=== PATIENT | male | born 1955 | race Caucasian/White ===

== ENCOUNTER → 2016-11-04 | Outpatient (CLI) | payer MEDICARE, OTHER ==
[2016-08-10 17:36] VITALS: BP 120/71
[~2016-11-04] MED LIST: CEPH-264 PO; HYDR-971 PO; LISI-338 PO
--- NOTE | 2016-11-04 13:47 | CARD ---
APPROVED REPORT EXAM: Two-dimensional and M-mode echocardiogram with Doppler and color Doppler. Other Information Quality : Average Rhythm : NSR INDICATION Murmur 2D DIMENSIONS RVDd3.5 (2.9-3.5cm)Left Atrium(2D)4.1 (1.6-4.0cm) IVSd1.0 (0.7-1.1cm)Aortic Root(2D)3.1 (2.0-3.7cm) LVDd5.3 (3.9-5.9cm)LVOT Diameter2.0 (1.8-2.4cm) PWd1.0 (0.7-1.1cm)LVDs2.9 (2.5-4.0cm) FS (%) 45.8 %SV105.9 ml Aortic Valve AoV Peak Qamar.132.0cm/sAoV VTI28.6cm AO Peak GR.7.0mmHgLVOT Peak Qamar.114.2cm/s LVOT VTI 19.55cmAO Mean GR.4mmHg DAVID (VMAX)2.80gx9JHS (VTI)2.05cm2 Mitral Valve MV E Xxdvmntr967.7cm/sMV E Peak Gr.123mmHg MV DECEL QFDN117xdHX A Yjwsjfbj80.1cm/s MV E Mean Gr.3mmHgMV HFX10es E/A Ratio1.9MV A Cctijdjz038ry MVA (PHT)4.02cm2 TDI E/Lateral E'13.0E/Medial E'12.0 Pulmonary Valve PV Peak Xdjsnwrf70.9cm/sPV Peak Grad.3mmHg RVOT VTI12.2cm Tricuspid Valve TR P. Ipadrrhm896gg/sRAP TQONTPII7srWu TR Peak Gr.14vrAyJGDP82wpHz LEFT VENTRICLE The left ventricle is normal size. There is mild concentric left ventricular hypertrophy. Left ventri jonathan systolic function is normal. The Ejection Fraction is 60-65%. There is normal LV segmental wall m otion. The left ventricular diastolic function and filling is normal for age. RIGHT VENTRICLE The right ventricle is normal size. The right ventricular systolic function is normal. ATRIA The left atrium is borderline dilated. The right atrium size is normal. The interatrial septum is int act with no evidence for an atrial septal defect or patent foramen ovale as noted on 2-D or Doppler i sherman. AORTIC VALVE The aortic valve is normal in structure and function. The aortic valve is trileaflet. Doppler and Col or Flow revealed no significant aortic regurgitation. There is no significant aortic valvular stenosi s. MITRAL VALVE The posterior mitral valve leaflet is prolapsed. A moderate mitral valve prolapse is present. There i s no mitral valve stenosis. Doppler and Color Flow revealed eccentric jet with probable moderate mitr al regurgitation. TRICUSPID VALVE The tricuspid valve is normal in structure and function. Doppler and Color Flow revealed mild tricusp id regurgitation. The PA pressure was estimated at 30 mmHg. There is no tricuspid valve stenosis. PULMONIC VALVE The pulmonic valve is not well visualized. Doppler and Color Flow revealed no pulmonic valvular regur gitation. There is no pulmonic valvular stenosis. GREAT VESSELS The aortic root is normal in size. The IVC is normal in size and collapses >50% with inspiration. PERICARDIAL EFFUSION There is no evidence of significant pericardial effusion. Critical Notification Critical Value: No <Conclusion> The left ventricle is normal size. Left ventricle systolic function is normal. The Ejection Fraction is 60-65%. There is mild concentric left ventricular hypertrophy. There is no significant aortic valvular stenosis. Doppler and Color Flow revealed no significant aortic regurgitation. The posterior mitral valve leaflet is prolapsed. Doppler and Color Flow revealed eccentric jet with probable moderate mitral regurgitation. Doppler and Color Flow revealed mild tricuspid regurgitation. The PA pressure was estimated at 30 mmHg.
== END | disposition home or self-care (01) ==
LOC: ECHO 10:41
PROVIDERS: ATTEND Family Medicine
DX: I51.7 Cardiomegaly (principal); I34.1 Nonrheumatic mitral (valve) prolapse; I07.1 Rheumatic tricuspid insufficiency
CPT/HCPCS: 93306

== ENCOUNTER 2019-11-28 18:41 | Emergency (ER) | payer OTHER ==
[~2019-11-28] VITALS: Ht 172.7 cm; Wt 100.0 kg
[~2019-11-28 18:41] MED LIST changes: +HYDR-3164 PO; -HYDR-971 PO
[2019-11-28 19:18] VITALS: BP 151/78
--- NOTE | 2019-11-28 20:19 | RAD ---
Examination: 3 views of the third digit HISTORY: History of injury COMPARISON: None available Findings/impression The alignment of the third metacarpophalangeal joint, interphalangeal joints grossly appears unremarkable. There is no obvious acute fracture identified in the third digit. Probable old fracture of the proximal phalanx of the fifth digit identified. Electronically signed by: Gilberto Mckee MD (11/28/2019 8:16 PM) [facility]
--- NOTE | 2019-11-28 20:28 | PHYS DOC ---
Past Medical History Past Medical History: Hypertension, Other Additional Past Medical Histor: hemochromatosis (LUISANA HAYDEN APRN) Past Surgical History: No Surgical History (LUISANA HAYDEN APRN) Alcohol Use: Occasionally Drug Use: None (LUISANA HAYDEN APRN) Attending Signature I have participated in the care of this patient and I have reviewed and agree with all pertinent clinical information above including history, exam, and recommendations. (LOPEZ LOPEZ MD) Adult General Chief Complaint Chief Complaint: LACERATION/AVULSION HPI HPI Patient is a 64 year old male, accompanied by his , who presents to the emergency department with complaints of left third digit avulsion injury. Patient states that his finger got caught in a fan of air compressor this afternoon and cut part of the tip of his finger off. He states his last tetanus shot was in the last 5 years. He currently rates his pain a 4 out of 10 on pain scale, he denies any alleviating factors. Patient denies any decreased sensation or movement of the affected finger. He denies use of any blood thinners. All other ROS is neg unless otherwise noted in HPI. (LUISANA HAYDEN APRN) Review of Systems Review of Systems See Above (LUISANA HAYDEN APRN) Current Medications Current Medications Current Medications Medications (Trade) Dose Ordered Sig/Lisa Start Time Stop Time Status Last Admin Dose Admin Cellulose (Surgicel Hemostat 4x8) 1 each 1X ONCE 11/28/19 20:30 11/28/19 20:31 DC 11/28/19 20:36 1 EACH (LOPEZ LOPEZ MD) Allergies Allergies Allergies Coded Allergies Type Severity Reaction Last Updated Verified Penicillins Allergy Intermediate 08/10/16 Yes (LOPEZ LOPEZ MD) Physical Exam Physical Exam See Above Constitutional: Well developed, well nourished, no acute distress, non-toxic appearance. [] HENT: Normocephalic, atraumatic, bilateral external ears normal, nose normal. [] Eyes: PERRLA, EOMI, conjunctiva normal, no discharge. [] Neck: Normal range of motion, no stridor. [] Cardiovascular:Heart rate regular rhythm Lungs & Thorax: Respirations even and unlabored, no retractions, no respiratory distress Skin: Warm, dry, no erythema, no rash; 1.5 cm avulsion injury to distal fingernail of L third digit, bleeding controlled with pressure, no visible FB, full ROM of affected finger. [] Extremities: No cyanosis, no clubbing, ROM intact, no edema. [] Neurologic: Alert and oriented X 3, no focal deficits noted. [] Psychologic: Affect normal, judgement normal, mood normal. [] (LUISANA HAYDEN APRN) Current Patient Data Vital Signs Vital Signs Date Time Temp Pulse Resp B/P (MAP) Pulse Ox O2 Delivery O2 Flow Rate FiO2 11/28/19 19:18 98.0 86 20 151/78 (102) 99 Room Air 98.0 (LOPEZ LOPEZ MD) EKG EKG [] (LUISANA HAYDEN APRN) Radiology/Procedures Radiology/Procedures PROCEDURE: FINGER(S) LEFT Examination: 3 views of the third digit HISTORY: History of injury COMPARISON: None available Findings/impression The alignment of the third metacarpophalangeal joint, interphalangeal joints grossly appears unremarkable. There is no obvious acute fracture identified in the third digit. Probable old fracture of the proximal phalanx of the fifth digit identified.[] (LUISANA HAYDEN APRN) Course & Med Decision Making Course & Med Decision Making Pertinent Labs and Imaging studies reviewed. (See chart for details) [] (LUISANA HAYDEN APRN) Dragon Disclaimer Dragon Disclaimer This electronic medical record was generated, in whole or in part, using a voice recognition dictation system. (LUISANA HAYDEN APRN) Departure Departure Impression: Primary Impression: Avulsion of fingernail of left hand Additional Impression: Avulsion of skin of finger without complication Disposition: 01 HOME, SELF-CARE Condition: STABLE Referrals: ALINA MORTON MD (PCP) Patient Instructions: Deep Skin Avulsion, Nail Avulsion Injury Additional Instructions: You may take tylenol or ibuprofen as needed for pain. Leave the Dressing that was placed in the ER in place for the next 24 hours, then change the dressing twice daily and apply antibiotic ointment as needed. Follow up with your primary care doctor or return to the ER in 48 hours to have wound rechecked. Return to the ER sooner if your symptoms worsen, he developed redness, warmth, or fever. Problem Qualifiers Additional Impression: Avulsion of skin of finger without complication Encounter type: initial encounter Qualified Codes: S61.209A - Unspecified open wound of unspecified finger without damage to nail, initial encounter LUISANA HAYDEN APRN Nov 28, 2019 20:28 LOPEZ LOPEZ MD Nov 29, 2019 03:57
[2019-11-28] MEDS ORDERED: SURGICEL HEMOSTAT 4X8 EACH. TP ONE (20:30)
== END 2019-11-28 20:41 | disposition home or self-care (01) ==
LOC: ER 18:41
DX: S61.303A Unspecified open wound of left middle finger with damage to nail, initial encounter (principal); I10 Essential (primary) hypertension; Z88.0 Allergy status to penicillin; W31.89XA Contact with other specified machinery, initial encounter; Y93.89 Activity, other specified; Y92.89 Other specified places as the place of occurrence of the external cause; Y99.8 Other external cause status
CPT/HCPCS: 73140; 99284

== ENCOUNTER 2021-04-15 09:01 | Emergency (ER) | payer MEDICARE ==
[~2021-04-15] VITALS: Ht 175.3 cm; Wt 77.2 kg
[~2021-04-15 09:01] MED LIST changes: -LISI-338 PO; +LISI-517 PO
--- NOTE | 2021-04-15 10:10 | ED.ADGEN ---
Past Medical History Past Medical History: Hypertension, Other Additional Past Medical Histor: hemochromatosis,SLEEP APNEA Past Surgical History: No Surgical History Smoking Status: Former Smoker Alcohol Use: Occasionally Drug Use: None General Adult EDM: Chief Complaint: COUGH HPI: HPI: Patient is a 65 year old male, accompanied by his , who presents emergency room with complaints of cough, sore throat, nasal congestion, runny nose, and sinus pressure for the last 3 weeks. Patient reports that [facility] [place] and had recently traveled back to [place]. Patient denies any loss of taste or smell. He denies any abdominal pain, nausea, vomiting, diarrhea, shortness of breath, wheezing, chest pain, body aches, or headache. He does complain that his chest feels tight and hurts to cough. He reports that he did receive the [employer] Covid immunization in December of this year. He currently rates his pain a 7 out of 10 on the pain scale and states that it is located in his throat. Review of Systems: Review of Systems: Complete ROS is negative unless otherwise noted in HPI. Allergies: Allergies: Allergies Coded Allergies Type Severity Reaction Last Updated Verified Penicillins Allergy Intermediate 08/10/16 Yes Physical Exam: PE: See Above Constitutional: Well developed, well nourished, no acute distress, non-toxic appearance. [] HENT: Normocephalic, atraumatic, bilateral external ears normal, no frontal sinus tenderness, mild maxillary sinus tenderness to palpation bilaterally, nose congested with erythematous and edematous turbinates bilaterally Eyes: PERRLA, EOMI, conjunctiva ejected, no discharge. [] Neck: Normal range of motion, no stridor. [] Cardiovascular:Heart rate regular rhythm Lungs & Thorax: Respirations even and unlabored, no retractions, no respiratory distress, lungs CTA Skin: Warm, dry, no erythema, no rash. [] Extremities: No cyanosis, ROM intact, no edema. [] Neurologic: Alert and oriented X 3, normal motor, normal sensory, no focal deficits noted. [] Psychologic: Affect normal, judgement normal, mood normal. [] Current Patient Data: Vital Signs: Vital Signs Date Time Temp Pulse Resp B/P (MAP) Pulse Ox O2 Delivery O2 Flow Rate FiO2 04/15/21 09:10 98.2 71 16 143/82 (102) 97 Room Air 98.2 EKG: EKG: [] Heart Score: C/O Chest Pain: No Risk Scores: Score 0 - 3: 2.5% MACE over next 6 weeks - Discharge Home Score 4 - 6: 20.3% MACE over next 6 weeks - Admit for Clinical Observation Score 7 - 10: 72.7% MACE over next 6 weeks - Early Invasive Strategies Radiology/Procedures: Radiology/Procedures: PROCEDURE: CHEST AP ONLY INDICATION: Reason: cough x 3 weeks PUI / Spl. Instructions: / History: COMPARISON: None. FINDINGS: Single view of chest obtained. Fullness of the right pulmonary hilum. Cardiac silhouette is upper limits of normal. Mild interstitial opacities IMPRESSION: * Mild interstitial opacities bilaterally which can be seen with mild interstitial infiltrate or edema. * Fullness of the right pulmonary hilum. Differential considerations would include prominent pulmonary arteries or lymphadenopathy. A perihilar mass is also not excluded given this finding. If further clarification is desired a follow-up formal PA and lateral chest radiograph or CT could further assess. Electronically signed by: Mike Cisse MD (04/15/2021 10:19 AM) [id number] [] Course & Med Decision Making: Course & Med Decision Making Pertinent Labs and Imaging studies reviewed. (See chart for details) COVID-19 CRITERIA: The patient was evaluated during the global COVID-19 pandemic, and that diagnosis was suspected/considered upon their initial presentation. Their evaluation, treatment and testing was consistent with current guidelines for patients who present with complaints or symptoms that may be related to COVID-19. [] Dragon Disclaimer: Dragon Disclaimer: This electronic medical record was generated, in whole or in part, using a voice recognition dictation system. Departure Departure Impression: Primary Impression: Cough in adult patient Additional Impressions: Abnormal chest xray Conjunctivitis Person under investigation for COVID-19 Disposition: 01 HOME / SELF CARE / HOMELESS Condition: STABLE Referrals: ALINA CISSE MD (PCP) Patient Instructions: Allergic Conjunctivitis, Zmsq-hm-Riwm, Cough, Adult, [id number]-Meey Additional Instructions: Fill the prescription(s) and use as directed. Recommend that you take 10 mg of generic Zyrtec (cetirizine) or Claritin at bedtime and use over the counter Flonase (fluticasone) nasal spray 2 sprays each nostril once daily in the morning. You may take Tylenol or ibuprofen as needed for pain/fever. Increase clear fluids. Avoid triggers such as smoke, fragrance, dust, and pollen. Follow-up with your primary care doctor about your abnormal chest x-ray, this will need future further evaluation. Return to the ER if symptoms worsen or fever does not respond to Tylenol or ibuprofen. Your COVID-19 results should be available by tomorrow. Please follow the following quarantine instructions; You have been tested for or diagnosed with COVID-19. It is an infection caused by a new type of coronavirus. COVID-19 will cause cold-like or mild flu symptoms in most. It can cause more severe symptoms like problems breathing in some. There is no treatment for COVID-19. The body will clear the infection over time. Self-care will help to ease discomfort. Steps to Take: Self-Care Rest as needed. Healthy habits may help you feel better. Steps include: Choose healthy foods including fruits and vegetables. Drink water throughout the day. Get plenty of sleep each night. If you smoke, try to quit. It may ease breathing. Avoid alcohol. Keep Others Healthy The virus can spread to others. Droplets are released every time you sneeze or cough. The droplets can get into the mouth, nose, or eyes of people near you and lead to infection. To lower the chances of spreading COVID-19 to others: Stay at home until your doctor has said it is safe to leave. If you tested positive this will mean staying isolated until both of the following are true: At least 7 days have passed since the start of illness. You are free of fever for at least 72 hours without the use of medicine. During this time: - Avoid public areas, events, or transportation. Do not return to work or school until your doctor has said it is safe to do so. - Call ahead if you need to go to a medical center. Let them know you may have COVID-19. It will help them guide you where to go. They may also ask you to wear a facemask when you come to the office. - If you call for emergency medical services, let them know you may have COVID- 19. While at home: - Try to avoid close contact with others. Stay about 6 feet away. - If possible, spend most of your time in a separate room from others. - Use a face mask if you will be in close contact with others such as sharing a room or vehicle. - Have someone wipe down common surfaces in the home. Use household flour worker every day on areas like doorknobs, counters, or sinks. - Cough or sneeze into a tissue. Throw the tissue away right after use. If a tissue is not available, cough or sneeze into your elbow. - Wash your hands often. Wash them after sneezing or coughing. Use soap and water and wash for at least 20 seconds. Alcohol based hand general cleaner can be used if soap and water is not available. - Do not prepare food for others. Avoid sharing personal items like forks, spoons, or toothbrushes. - Avoid close contact with pets while you are sick. There is no evidence of the virus passing to pets. This is a safety step until more is known about this virus. Isolation can be frustrating. Social interaction can help. Keep in touch with friends and family through phone and tech options. You can still interact with others in your home, just keep a safe distance of about 6 feet. Follow-up: Your doctors office will check in with you to see if there are any changes in your health. You may be asked to keep track of symptoms to share with them. They will also let you know when you are clear to be in public again. Problems to Look Out For: Contact your doctor if your recovery is not going as you expect. Get emergency care if you have problems such as: - Trouble breathing - Nonstop chest pain or pressure - Changes in awareness, confusion, or problems waking - Lips or face have bluish color - Worsening of symptoms If you think you have an emergency, call for emergency medical services right away. As taken from [facility] Azithromycin (AZITHROMYCIN TABLET) 250 Mg Tablet 1 PKG PO UD for 5 Days, #6 TAB 0 Refills 2 the first day followed by 1 for days 2-5 Prov: LUISANA HAYDEN APRN 04/15/21 Olopatadine HCl (Olopatadine HCl) 2.5 Ml Drops 1 DROP EACHEYE BID for 30 Days, #1 BOT 0 Refills Prov: LUISANA HAYDEN APRN 04/15/21 Attending Signature I have participated in the care of this patient and I have reviewed and agree with all pertinent clinical information above including history, exam, and recommendations. COVID-19 Assessment: COVID-19 Patient Risks: Age 65 or older: Yes Sign of co-morbidity: No Exp to person + for COVID: No Exp to PUI: No Travel from affected area: Yes Lower respiratory symptoms: Yes Fever: No PPE Use: Full PPE with N95 mask or PAPR: Yes Problem Qualifiers Additional Impressions: Conjunctivitis Conjunctivitis type: acute Acute conjunctivitis type: atopic Laterality: bilateral Qualified Codes: H10.13 - Acute atopic conjunctivitis, bilateral LUISANA HAYDEN APRN Apr 15, 2021 10:10 RABIA PANIAGUA DO Apr 15, 2021 11:46
--- NOTE | 2021-04-15 10:21 | RAD ---
INDICATION: Reason: cough x 3 weeks PUI / Spl. Instructions: / History: COMPARISON: None. FINDINGS: Single view of chest obtained. Fullness of the right pulmonary hilum. Cardiac silhouette is upper limits of normal. Mild interstitial opacities IMPRESSION: * Mild interstitial opacities bilaterally which can be seen with mild interstitial infiltrate or [place] ma. * Fullness of the right pulmonary hilum. Differential considerations would include prominent pulmona ry arteries or lymphadenopathy. A perihilar mass is also not excluded given this finding. If further clarification is desired a follow-up formal PA and lateral chest radiograph or CT could further asses s. Electronically signed by: Mike Cisse MD (04/15/2021 10:19 AM) [id number]
[2021-04-15] MEDS ORDERED: OLOP2.5D16 EACHEYE (11:25)
[2021-04-15] MEDS ORDERED: AZIT250T6 PO (11:25)
[2021-04-15 11:49] VITALS: BP 134/84
--- NOTE | 2021-04-16 12:12 | NUR ---
IP: Informed pt of negative covid test. Pt verbalized understanding.
== END 2021-04-15 11:49 | disposition home or self-care (01) ==
LOC: ER 09:01
DX: R05 Cough (principal); Z20.822 Contact with and (suspected) exposure to COVID-19; H10.9 Unspecified conjunctivitis; R91.8 Other nonspecific abnormal finding of lung field; I10 Essential (primary) hypertension; Z87.891 Personal history of nicotine dependence; Z88.0 Allergy status to penicillin
CPT/HCPCS: 71045; 99284; U0003; U0005